=== PATIENT | male | born 1995 | race Two or more races ===

== ENCOUNTER → 2025-03-08 | Outpatient (CLI) | payer MEDICAID, SELFPAY ==
--- NOTE | 2025-03-08 10:30 | XR_ITS ---
Examination: MRI left elbow, without contrast Date and time of exam: March 08, 2025, 10:58 AM Indications: Posterior left elbow pain weakness tightness in the elbow with bending beginning 10 years ago Technique: Multiple axial sagittal and coronal images of the left elbow have been obtained with the Siemens high-resolution 1.5 Ivette MRI scanner. Images obtained include T2-weighted fat-suppressed sagittal sections, TR 3500, TE 46, T2 weighted coronal fat suppressed images, TR 3050, TE 84, T2-weighted transverse fat suppressed images, TR 3260, TE 63, proton density transverse images, TR 4720 TE 46, and T1 weighted coronal images, TR 560, TE 13. Findings: Mild diffuse elbow osteoarthritis Mild osteophyte formation involving the coronoid process of the ulna Mild narrowing elbow joints. Mild elbow effusion. 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 Moderate to severe strain of the common extensor tendon. Mild strain of the common flexor tendons
== END | disposition home or self-care (01) ==
PROVIDERS: Referring Provider Surgery Surgery of the Hand; Visit Provider Surgery Surgery of the Hand
DX: M19.022 Primary osteoarthritis, left elbow (principal); S46.312A Strain of muscle, fascia and tendon of triceps, left arm, initial encounter; S56.512A Strain of other extensor muscle, fascia and tendon at forearm level, left arm, initial encounter; S56.212A Strain of other flexor muscle, fascia and tendon at forearm level, left arm, initial encounter; X58.XXXA Exposure to other specified factors, initial encounter
CPT/HCPCS: 73221